=== PATIENT | female | born 1955 | race Caucasian/White ===

== ENCOUNTER 2022-02-24 05:40 | Day surgery (SDC) | payer BC ==
[2022-02-24] MEDS ORDERED: Lactated Ringers 1,000 ML IV ONE (06:15)
[2022-02-24] MEDS ORDERED: Cyanocobalamin (Vitamin B12) 1,000 MCG/ML SDV IM ONE (06:30)
[2022-02-24] MEDS ORDERED: Midazolam 1 MG/ML 2 ML SDV ONE (07:12)
[2022-02-24] MEDS ORDERED: fentaNYL 100 MCG/2 ML SDV ONE (07:12)
[2022-02-24] MEDS ORDERED: Propofol 200 MG/20 ML SDV ONE (07:12)
[2022-02-24] MEDS ORDERED: MVI, Adult with Vitamin K 10 ML, Thiamine 200 MG, Chromium/Copper/Mang/Selen/Zn 1 ML in... IV ONE ×4 (07:15)
[2022-02-24] MEDS ORDERED: Glycopyrrolate 0.2 MG/ML 2 ML SDV IVPUSH ONE (07:15)
[2022-02-24] MEDS ORDERED: Sodium Chloride 0.9% 250 ML IV SCH (09:00)
[2022-02-24] MEDS ORDERED: ferumoxytoL 510 MG in Sodium Chloride 0.9% 100 ML IV ONE (09:00)
== END 2022-02-24 11:06 | disposition home or self-care (01) ==
LOC: JP.SDS 05:40
PROVIDERS: ATTEND Surgery
DX: R13.10 Dysphagia, unspecified (principal); Z98.84 Bariatric surgery status
CPT/HCPCS: J2250; J2704; J3010; J3411; J3420; J3490; J7050; J7120; Q0138